=== PATIENT | female | born 1990 ===

== ENCOUNTER 2020-09-21 23:57 | Emergency (ER) | payer OTHER ==
--- OUTSIDE RECORDS SUMMARY | 2020-09-22 | XMS REPORT | Continuity of Care Document ---
:1990 Author Organization [facility] t Address [address] [place] [address] Care Team Providers Name Role Phone Luciano Eller Attending Clinician Problems This patient has no known problems. Allergies, Adverse Reactions, Alerts This patient has no known allergies or adverse reactions. Medications This patient has no known medications. Procedures This patient has no known procedures. Encounters Start End Encounter Admission Attending Care Care Encounter Source Date/Time Date/Time Type Type Clinicians Facility Department ID 2020-09-18 2020-09-18 Routine ELLEN Berman [id number] 10:24:00 10:40:03 Sade Wolf ADJUNCT PHYSICAL EDUCATION INSTRUCTOR [id number] Visit REGIONAL [id number] MATERNAL [id number] & CHILD [address] [place] [address] Results This patient has no known results.
--- NOTE | 2020-09-22 01:36 | EDPHYS ---
Physician Documentation [facility] Name: Belinda Crump Age: 29 yrs Sex: Female : 1990 Arrival Date: 09/22/2020 Time: 00:36 Bed 13 Private MD: ED Physician Abner Jarrell HPI: 09/22 01:29 This 29 yrs old Unknown Female presents to ER via Ambulatory with complaints of Ear mh7 Pain. 01:29 The patient presents with a fullness, hearing loss, partial. The complaints affect the mh7 left ear. 01:29 Onset: The symptoms/episode began/occurred 2 day(s) ago. Modifying factors: The mh7 symptoms are alleviated by nothing, the symptoms are aggravated by nothing. Associated signs and symptoms: Pertinent negatives: cough, fever, lightheadedness, nausea, rhinorrhea, sinus trouble, shortness of breath, sore throat, tinnitus, vertigo, vomiting. Severity of symptoms: At their worst the symptoms were mild 2 day(s) ago, in the emergency department the symptoms are unchanged. Reports using q tips in her ear to try and remove wax but started having ear issues since then. Denies any fever, nausea, vomiting, or other complaints.. 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 - Social history:: Smoking status: Patient denies any tobacco usage or history of. Patient/guardian denies using alcohol, street drugs. ROS: 01:29 Constitutional: Negative for fever, chills, and weight loss, Eyes: Negative for injury, mh7 pain, redness, and discharge, Neck: Negative for injury, pain, and swelling, Cardiovascular: Negative for chest pain, palpitations, and edema, Respiratory: Negative for shortness of breath, cough, wheezing, and pleuritic chest pain, Abdomen/GI: Negative for abdominal pain, nausea, vomiting, diarrhea, and constipation, Back: Negative for injury and pain, : Negative for injury, bleeding, discharge, and swelling, MS/Extremity: Negative for injury and deformity, Skin: Negative for injury, rash, and discoloration, Neuro: Negative for headache, weakness, numbness, tingling, and seizure, Psych: Negative for depression, anxiety, suicide ideation, homicidal ideation, and hallucinations, Allergy/Immunology: Negative for hives, rash, and allergies, Endocrine: Negative for neck swelling, polydipsia, polyuria, polyphagia, and marked weight changes, Hematologic/Lymphatic: Negative for swollen nodes, abnormal bleeding, and unusual bruising. Exam: :29 Constitutional: This is a well developed, well nourished patient who is awake, alert, mh7 and in no acute distress. Head/Face: Normocephalic, atraumatic. Eyes: Pupils equal round and reactive to light, extra-ocular motions intact. Lids and lashes normal. Conjunctiva and sclera are non-icteric and not injected. Cornea within normal limits. Periorbital areas with no swelling, redness, or edema. :29 Neck: Trachea midline, no thyromegaly or masses palpated, and no cervical lymphadenopathy. Supple, full range of motion without nuchal rigidity, or vertebral point tenderness. No Meningismus. Chest/axilla: Normal chest wall appearance and motion. Nontender with no deformity. No lesions are appreciated. Cardiovascular: Regular rate and rhythm with a normal S1 and S2. No gallops, murmurs, or rubs. Normal PMI, no JVD. No pulse deficits. Respiratory: Lungs have equal breath sounds bilaterally, clear to auscultation and percussion. No rales, rhonchi or wheezes noted. No increased work of breathing, no retractions or nasal flaring. Abdomen/GI: Soft, non-tender, with normal bowel sounds. No distension or tympany. No guarding or rebound. No evidence of tenderness throughout. Back: No spinal tenderness. No costovertebral tenderness. Full range of motion. Skin: Warm, dry with normal turgor. Normal color with no rashes, no lesions, and no evidence of cellulitis. MS/ Extremity: Pulses equal, no cyanosis. Neurovascular intact. Full, normal range of motion. Neuro: Awake and alert, GCS 15, oriented to person, place, time, and situation. Cranial nerves II-XII grossly intact. Motor strength 5/5 in all extremities. Sensory grossly intact. Cerebellar exam normal. Normal gait. Psych: Awake, alert, with orientation to person, place and time. Behavior, mood, and affect are within normal limits. 01:29 ENT: External ear(s): are unremarkable, Ear canal(s): abscess, is not appreciated, bleeding, is not appreciated, bloody discharge, is not appreciated, cerumen impaction, that is moderate, occluding the left ear canal, erythema, is not appreciated, foreign body, is not appreciated, purulent discharge, is not appreciated, swelling, is not appreciated, TM's: not visable, because of cerumen, Examination of the other ear shows no obvious abnormality, Nose: is normal, Mouth: is normal, Posterior pharynx: is normal, Dental exam: normal, Voice: is normal, Breath odor: is normal. Vital Signs: 00:49 BP 131 / 60; Pulse 87; Resp 16 S; Temp 98.8(O); Pulse Ox 98% on R/A; Weight 120.2 kg bb (R); Height 5 ft. 6 in. (167.64 cm) (R); Pain 0/10; 00:49 Body Mass Index 42.77 (120.20 kg, 167.64 cm) bb MDM: 01:29 Differential diagnosis: otitis media, otitis externa, ruptured TM, foreign body, acute mh7 otalgia, cerumen impaction, barotrauma , serotympanum. Data reviewed: vital signs, nurses notes. Data interpreted: Pulse oximetry: on room air is 98 %. Interpretation: normal. Counseling: I had a detailed discussion with the patient and/or guardian regarding: the historical points, exam findings, and any diagnostic results supporting the discharge/admit diagnosis, the need for outpatient follow up, to return to the emergency department if symptoms worsen or persist or if there are any questions or concerns that arise at home. 01:35 Patient medically screened. mh7 Administered Medications: No medications were administered Disposition: 09/22/20 01:35 Discharged to Home. Impression: Impacted cerumen, left ear. - Condition is Stable. - Discharge Instructions: Earwax Buildup, Adult. - Medication Reconciliation Form, Thank You Letter, Antibiotic Education, Prescription Opioid Use form. - Follow up: Private Physician; When: 1 - 2 days; Reason: Worsening of condition, Recheck today's complaints, Continuance of care, Re-evaluation by your physician. Follow up: Paz Rosales MD; When: 1 - 2 days; Reason: Worsening of condition, Recheck today's complaints. - Problem is new. - Symptoms have improved. Signatures: Juany Gonzalez RN RN bb Abner Jarrell MD MD mh7 Corrections: (The following items were deleted from the chart) 01:52 01:35 09/22/2020 01:35 Discharged to Home. Impression: Impacted cerumen, left ear. bb Condition is Stable. Forms are Medication Reconciliation Form, Thank You Letter, Antibiotic Education, Prescription Opioid Use. Follow up: Private Physician; When: 1 - 2 days; Reason: Worsening of condition, Recheck today's complaints, Continuance of care, Re-evaluation by your physician. Follow up: Paz Rosales; When: 1 - 2 days; Reason: Worsening of condition, Recheck today's complaints. Problem is new. Symptoms have improved. mh7
--- NOTE | 2020-09-22 01:36 | ER ---
Nurse's Notes [facility] Name: Belinda Crump Age: 29 yrs Sex: Female : 1990 Arrival Date: 09/22/2020 Time: 00:36 Bed 13 Private MD: Diagnosis: Impacted cerumen, left ear Presentation: 09/22 00:49 Chief complaint: Patient states: she is having hearing loss in her left ear x 2 days bb denies pain. Coronavirus screen: At this time, the client does not indicate any symptoms associated with coronavirus-19. Ebola Screen: No symptoms or risks identified at this time. Initial Sepsis Screen: Does the patient meet any 2 criteria? No. Patient's initial sepsis screen is negative. Does the patient have a suspected source of infection? No. Patient's initial sepsis screen is negative. Risk Assessment: Do you want to hurt yourself or someone else? Patient reports no desire to harm self or others. Onset of symptoms was September 20, 2020. 00:49 Method Of Arrival: Ambulatory bb 00:49 Acuity: BRANDI 5 bb Triage Assessment: 00:51 General: Appears in no apparent distress. Behavior is calm, cooperative. Pain: Denies bb pain. EENT: Reports decreased hearing in left ear. Neuro: Level of Consciousness is awake, alert, obeys commands, Oriented to person, place, time, situation. Cardiovascular: No deficits noted. Respiratory: Respiratory effort is even, unlabored, Respiratory pattern is regular. Derm: Skin is pink, warm \T\ dry. Musculoskeletal: Circulation, motion, and sensation intact. 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 - Social history:: Smoking status: Patient denies any tobacco usage or history of. Patient/guardian denies using alcohol, street drugs. Screenin:53 Abuse screen: Denies threats or abuse. Nutritional screening: No deficits noted. bb Tuberculosis screening: No symptoms or risk factors identified. Fall Risk None identified. Assessment: 00:53 Reassessment: No changes from previously documented assessment. see triage assessment. bb 01:50 Reassessment: Patient is alert, oriented x 3, equal unlabored respirations, skin bb warm/dry/pink. pt verbalized understanding of and agrees to plan of care discharge instructions given pt ambulated with steady gait to exit. Vital Signs: 00:49 BP 131 / 60; Pulse 87; Resp 16 S; Temp 98.8(O); Pulse Ox 98% on R/A; Weight 120.2 kg bb (R); Height 5 ft. 6 in. (167.64 cm) (R); Pain 0/10; 00:49 Body Mass Index 42.77 (120.20 kg, 167.64 cm) bb ED Course: 00:36 Patient arrived in ED. es 00:45 Kingsley Quintero, RN is Primary Nurse. rv 00:47 Abner Jarrell MD is Attending Physician. [facility] 00:51 Triage completed. bb 00:51 Arm band placed on Patient placed in an exam room, on a stretcher, on pulse oximetry. bb 00:53 Patient has correct armband on for positive identification. Call light in reach. bb 01:35 Paz Rosales MD is Referral Physician. [facility] 01:51 No provider procedures requiring assistance completed. Patient did not have IV access bb during this emergency room visit. Administered Medications: No medications were administered Outcome: 01:35 Discharge ordered by . [facility] 01:51 Discharged to home ambulatory. bb 01:51 Condition: stable 01:51 Discharge instructions given to patient, Instructed on discharge instructions, follow up and referral plans. Demonstrated understanding of instructions, follow-up care. 01:52 Patient left the ED. bb Signatures: Michelle Ma Brenda, RN RN bb Kingsley Quintero RN RN rv Abner Jarrell MD MD [facility]
[2020-09-22 01:57] VITALS: BP 131/60; TEMP 98.8; O2SAT 98
== END 2020-09-22 01:52 | disposition home or self-care (01) ==
LOC: ER 23:57
DX: O26.891 Other specified pregnancy related conditions, first trimester (principal); Z3A.08 8 weeks gestation of pregnancy
CPT/HCPCS: 99283